=== PATIENT | male | born 1960 | race Caucasian/White ===

== ENCOUNTER 2017-06-17 15:33 | Inpatient (IN) | payer MEDICAID, OTHER ==
[~2017-06-17] VITALS: Ht 167.6 cm; Wt 69.0 kg
--- NOTE | 2017-06-17 16:12 | ERD ---
ER Documentation Chief Complaint Date/Time DATE: 06/17/17 TIME: 15:58 Chief Complaint RIGHT FIRST TOE PAIN/SWELLING HPI This 57-year-old male patient presents to emergency department for a right great toe injury. Patient reports he was cutting his toe with tweezers and slipped he has a skin avulsion distally from skin fold and matrix of great toenail. Patient's toe is edematous with erythema, denies acute pain reports 3/ 10 on pain scale. Denies nausea vomiting fever or chills. Patient denies past medical history of diabetes, reports frequent ingrown toenails which he exercises himself. ROS All systems reviewed and are negative except as per history of present illness. Medications Home Meds No Active Prescriptions or Reported Meds Allergies Allergies: Coded Allergies: No Known Drug Allergies (Verified Allergy, Unknown, 06/17/17) Physical Exam Vitals Vital Signs Date Time Temp Pulse Resp B/P Pulse Ox O2 Delivery O2 Flow Rate FiO2 06/17/17 20:35 98.2 83 18 136/78 97 Room Air 06/17/17 15:35 98.2 99 18 159/81 97 Physical Exam Const: Well-nourished, well-hydrated, no acute distress Head: Atraumatic Eyes: Normal Conjunctiva PERRLA, EOMI ENT: Normal External Ears, Nose and Mouth mucous membranes. Neck: Full range of motion..~ No meningismus. Resp: Respirations even and unlabored, no respiratory distress Cardio: Abd: Skin: Right great toe presents with a open oozing 0.7 cm x 0.3 cm wound involving nailbed matrix and skin fold Back: Ext: Neur: Awake and alert Psych: Normal Mood and Affect Result Diagram: 06/17/17191906/17/171919 Results 24 hrs Laboratory Tests Test 06/17/17 19:20 White Blood Count 8.310^3/ul Red Blood Count 5.1110^6/ul Hemoglobin 16.0g/dl Hematocrit 46.0% Mean Corpuscular Volume 90.0fl Mean Corpuscular Hemoglobin 31.3pg Mean Corpuscular Hemoglobin Concent 34.8g/dl Red Cell Distribution Width 12.3% Platelet Count 05815^3/UL Mean Platelet Volume 10.5fl Neutrophils % 55.1% Lymphocytes % 33.9% Monocytes % 8.1% Eosinophils % 2.0% Basophils % 0.5% Nucleated Red Blood Cells % 0.0/100WBC Neutrophils # 4.610^3/ul Lymphocytes # 2.810^3/ul Monocytes # 0.710^3/ul Eosinophils # 0.210^3/ul Basophils # 0.010^3/ul Nucleated Red Blood Cells # 0.010^3/ul Sodium Level 144mmol/L Potassium Level 4.2mmol/L Chloride Level 99mmol/L Carbon Dioxide Level 29mmol/L Anion Gap 20 Blood Urea Nitrogen 13mg/dl Creatinine 0.75mg/dl Glucose Level 259mg/dl Lactic Acid Level 2.1mmol/L Calcium Level 9.8mg/dl Total Bilirubin 0.4mg/dl Direct Bilirubin 0.00mg/dl Indirect Bilirubin 0.4mg/dl Aspartate Amino Transf (AST/SGOT) 20IU/L Alanine Aminotransferase (ALT/SGPT) 32IU/L Alkaline Phosphatase 98IU/L Total Protein 7.8g/dl Albumin 4.6g/dl Globulin 3.20g/dl Albumin/Globulin Ratio 1.43 Current Medications Medications (Trade) Dose Ordered Sig/Debra Route PRN Reason Start Time Stop Time Status Last Admin Dose Admin Acetaminophen (Tylenol Tab) 650 mg ONCE ONCE PO 06/17/17 16:30 06/17/17 16:31 DC 06/17/17 16:18 Cephalexin (Keflex) 500 mg ONCE ONCE PO 06/17/17 16:30 06/17/17 16:31 DC 06/17/17 16:18 Trimethoprim/ Sulfamethoxazole (Bactrim (Ds)) 1 tab ONCE ONCE PO 06/17/17 16:30 06/17/17 16:31 DC 06/17/17 16:19 Mupirocin 1 applic 1 applic ONCE ONCE TOP 06/17/17 16:30 06/17/17 16:31 DC Vancomycin HCl 1 gm/Sodium Chloride 250 ml @ 125 mls/hr ONCE ONCE IVPB 06/17/17 19:30 06/17/17 21:29 DC 06/17/17 20:10 Cefepime HCl 50 ml @ 100 mls/hr ONCE ONCE IVPB 06/17/17 19:30 06/17/17 19:59 DC 06/17/17 19:33 Sodium Chloride (NS) 1,000 ml @ 1,000 mls/hr Q1H ONCE IV 06/17/17 19:30 06/17/17 20:29 DC 06/17/17 19:33 Ondansetron HCl (Zofran Inj) 4 mg BRIDGE ORDER PRN IV NAUSEA AND/OR VOMITING 06/17/17 20:30 06/18/17 20:29 Acetaminophen (Tylenol Tab) 650 mg ER BRIDGE PRN PO MILD PAIN/FEVER 06/17/17 20:30 06/18/17 20:29 IV Flush (NS 3 ml) 3 ml PER PROTOCOL IV 06/17/17 23:00 Ondansetron HCl (Zofran Inj) 4 mg Q6H PRN IV NAUSEA AND/OR VOMITING 06/17/17 23:00 Acetaminophen (Tylenol Tab) 650 mg Q6H PRN PO PAIN LEVEL 1-3 OR FEVER 06/17/17 23:00 Morphine Sulfate (morphine) 2 mg Q4H PRN IV SEVERE PAIN LEVEL 7-10 06/17/17 23:00 Docusate Sodium (Colace) 100 mg Q12H PRN PO CONSTIPATION 06/17/17 23:00 Bisacodyl (Dulcolax) 5 mg DAILY PRN PO CONSTIPATION 06/17/17 23:00 Famotidine (Pepcid) 20 mg Q12 PO 06/17/17 23:00 06/17/17 23:51 Interpretation text CBC shows no evidence of hemorrhage or infection Chemistry shows no evidence of significant electrolyte abnormalities or renal insufficiency Lactic acid is 2.1. Procedures/MDM PROCEDURE: XR Toe. CLINICAL INDICATION: Osteomyelitis right first toe. TECHNIQUE: Three views of the right first toe. COMPARISON: None available. FINDINGS: There is soft tissue edema overlying the distal phalanx of the great toe with irregularity of the skin likely due to ulceration. There is mild periosteal reaction involving the tuft of the distal phalanx of the great toe concerning for osteomyelitis. Negative for bony destruction. The interphalangeal joint is anatomically aligned and appears normal. Negative for radiopaque foreign body. No abnormality is identified in the remainder of the foot. IMPRESSION: Periosteal reaction involving the tuft of the distal phalanx of the great toe concerning for osteomyelitis without bony destruction. There is edema in the surrounding soft tissues without clear evidence of abnormal soft tissue gas. Electronically viewed and signed by Renetta Peralta Physician on 06/17/2017 18: 27 This 57-year-old male patient presents to emergency department for evaluation of a right great toe injury. Wound was self-inflicted when trimming his own nail patient inadvertently cut into his nail matrix and skin folds. Patient has a 0.7 cm x 0.3 cm purulent oozing wet open wound. Wound is suspicious for an osteomyelitis patient treated with wound care, Bactroban, oral Keflex and Bactrim. Wound is suspicious for osteomyelitis a x-ray will be obtained with results as stated above distal phalanx of great toe concerning for osteomyelitis without bony destruction. There is edema around surrounding soft tissue without clear evidence of abnormal soft tissue gas. This case discussed with supervising physician Dr. Hernandez . 1 L of normal saline, 1 g of vancomycin , and 2 g of cefepime ordered. Lactic acid is 2.1 with normal WBCs and no bandemia. Patient is afebrile with a normal sinus rhythm. Plan to admit patient to hospitalist group. All care turned over to Dr. Hernandez at this time Departure Diagnosis: Primary Impression: Osteomyelitis of ankle or foot, right, acute Condition: Stable CORIN,SURENDRA Jun 17, 2017 16:08
[2017-06-17] MEDS ORDERED: TRIMETHOPRIM/SULFAMETHOX (DS) TAB PO ONE (16:30)
[2017-06-17] MEDS ORDERED: CEPHALEXIN 500 MG CAP PO ONE (16:30)
[2017-06-17] MEDS ORDERED: MUPIROCIN 2% 22 GM OINT TOP ONE (16:30)
[2017-06-17] MEDS ORDERED: ACETAMINOPHEN 325 MG TAB PO ONE (16:30)
--- NOTE | 2017-06-17 18:28 | RADRPT ---
PROCEDURE: XR Toe. CLINICAL INDICATION: Osteomyelitis right first toe. TECHNIQUE: Three views of the right first toe. COMPARISON: None available. FINDINGS: There is soft tissue edema overlying the distal phalanx of the great toe with irregularity of the sk in likely due to ulceration. There is mild periosteal reaction involving the tuft of the distal pha lanx of the great toe concerning for osteomyelitis. Negative for bony destruction. The interphalan geal joint is anatomically aligned and appears normal. Negative for radiopaque foreign body. No ab normality is identified in the remainder of the foot. IMPRESSION: Periosteal reaction involving the tuft of the distal phalanx of the great toe concerning for osteomy elitis without bony destruction. There is edema in the surrounding soft tissues without clear evide nce of abnormal soft tissue gas. RPTAT: HCTS Physician Sharlene Date Time Electronically viewed and signed by Physician Sharlene on 06/17/2017 18:27 /
[2017-06-17] MEDS ORDERED: VANCOMYCIN 1 GM in SOD CHLORIDE 0.9% 250 ML IVPB ONE (19:30)
[2017-06-17] MEDS ORDERED: SOD CHLORIDE 0.9% 1,000 ML IV ONE (19:30)
[2017-06-17] MEDS ORDERED: CEFEPIME 2GM/50 ML (PMX) 50 ML IVPB ONE (19:30)
[2017-06-17 19:43] LABS: BASOPHILS % 0.5 % (0.0-2.0); EOSINOPHILS # 0.2 10^3/ul (0.0-0.5); LYMPHOCYTES # 2.8 10^3/ul (0.8-2.9); LYMPHOCYTES % 33.9 % (15.0-51.0); MEAN CORPUSCULAR HEMOGLOBIN 31.3 pg (29.0-33.0); MEAN CORPUSCULAR HGB CONC 34.8 g/dl (32.0-37.0); MEAN PLATELET VOLUME 10.5 fl (7.4-10.4); MONOCYTE # 0.7 10^3/ul (0.3-0.9); MONOCYTES % 8.1 % (0.0-11.0); NEUTROPHIL # 4.6 10^3/ul (1.6-7.5); NEUTROPHILS % 55.1 % (39.0-77.0); PLATELET COUNT 275 10^3/UL (140-415); RED BLOOD COUNT 5.11 10^6/ul (4.70-6.10); RED CELL DISTRIBUTION WIDTH 12.3 % (11.5-14.5); WHITE BLOOD COUNT 8.3 10^3/ul (4.8-10.8)
[2017-06-17 20:30] LABS: ALBUMIN 4.6 g/dl (3.3-4.9); ALBUMIN/GLOBULIN RATIO 1.43; BILIRUBIN,INDIRECT 0.4 mg/dl (0-1.1); BILIRUBIN,TOTAL 0.4 mg/dl (0.2-1.3); CALCIUM 9.8 mg/dl (8.4-10.2); CREATININE 0.75 mg/dl (0.61-1.24); POTASSIUM 4.2 mmol/L (3.5-5.1); TOTAL PROTEIN 7.8 g/dl (6.1-8.1)
[2017-06-17] MEDS ORDERED: ONDANSETRON 4 MG INJ IV PRN ×2 (20:30→23:00)
[2017-06-17] MEDS ORDERED: ACETAMINOPHEN 325 MG TAB PO PRN ×2 (20:30→23:00)
[2017-06-17 20:35] VITALS: TEMP 98.2
[2017-06-17] MEDS ORDERED: BISACODYL (EC) 5 MG TAB PO PRN (23:00)
[2017-06-17] MEDS ORDERED: morphine 2 MG INJ IV PRN (23:00)
[2017-06-17] MEDS ORDERED: DOCUSATE SODIUM 100 MG CAP PO PRN (23:00)
[2017-06-17] MEDS ORDERED: NACL 0.9% 3 ML SYG IV SCH (23:00)
--- NOTE | 2017-06-17 23:13 | HP ---
Date/Time of Note Date/Time of Note DATE: 06/17/17 TIME: 23:12 Assessment/Plan VTE Prophylaxis VTE Prophylaxis Intervention: SCD's Assessment/Plan Chief Complaint/Hosp Course This is a 57-year-old male being admitted to the [facility] floor for: #1 right great toe osteomyelitis: Patient has a history of treating his own ingrown toenails. X-ray shows signs of osteomyelitis. At the current time will start the patient on IV vancomycin and Levaquin. Will obtain an MRI of the foot. Will obtain podiatry consult and ID consult. Will also obtain lower extremity arterial Doppler to assess blood flow. #2 elevated blood sugars: Patient denies any history of diabetes. At the current time we will continue monitor blood sugars. Will obtain a hemoglobin A1c. #3 DVT and GI prophylaxis: SCDs, acid jae Further treatment strategy will be implemented as per the clinical course Problems: HPI/ROS Admit Date/Time Admit Date/Time Hx of Present Illness cc: right great toe injury This 57-year-old male patient presents to emergency department for a right great toe injury. Patient reports he was cutting his toe with tweezers and slipped he has a skin avulsion distally from skin fold and matrix of great toenail. Patient's toe is edematous with erythema, denies acute pain reports 3/ 10 on pain scale. Denies nausea vomiting fever or chills. Patient denies past medical history of diabetes, reports frequent ingrown toenails which he removes himself. allergies: nkda meds: none ROS Const: Negative for fever, chills, weight gain or weight loss, fatigue, or diaphoresis Eyes : No pain discharge or redness or change in visual acuity ENT: No pain, sore throat, congestion, congestion, dysphagia or discharge Respiratory: No shortness of breath, cough, sputum, wheezing, or pleuritic pain Cardiovascular: No chest pain, palpitation, PND, or edema GI : no change in appetite, abdominal pain, nausea, vomiting, diarrhea, constipation, or change in the color his stool Genitourinary: No dysuria, hematuria, flank pain , discharge or CVA tenderness Musculoskeletal: As per HPI Skin: As per HPI Neuro: No headache, dizziness, syncope, seizure, focal weakness Endocrine: No polyuria, polydipsia, temperature intolerance Psych: No hallucination, depression, anxiety or suicidal ideation PMH/Family/Social Past Medical History Medical History: no pertinent history Past Surgical History Past Surgical Hx: no surgical history Family History Significant Family History: diabetes, hypertension Social History Alcohol Use: none Smoking Status: Never smoker Drug Use: none Exam/Review of Systems Vital Signs Vitals Vital Signs Date Time Temp Pulse Resp B/P Pulse Ox O2 Delivery O2 Flow Rate FiO2 06/17/17 20:35 98.2 83 18 136/78 97 Room Air Exam Exam General: Patient is well-developed well-nourished The patient is alert oriented -3 lying comfortably in bed. HEENT: Atraumatic, normocephalic. The pupils are equal, round and reactive. Extraocular motor are intact Neck: Supple with full range of motion. No rigidity or meningismus Chest: Nontender Lungs: Clear to auscultation bilaterally no crackles rales or wheezing Heart: Normal S1-S2, Regular rhythm and rate. No murmur, S3, or S4 Abdomen: Soft , nontender, nondistended , bowel sounds are present. No guarding no rebound tenderness , No masses or organomegaly. No costovertebral temporal angle mass Extremities: As per ED documentation as the toe was wrapped securely on my examination: Right great toe presents with a open oozing 0.7 cm x 0.3 cm wound involving nailbed matrix and skin fold Neurologic: Normal mental status, speech normal, cranial nerves II through XII are intact, motor and sensory are intact, no focal weakness Additional Comments PROCEDURE: XR Toe. CLINICAL INDICATION: Osteomyelitis right first toe. TECHNIQUE: Three views of the right first toe. COMPARISON: None available. FINDINGS: There is soft tissue edema overlying the distal phalanx of the great toe with irregularity of the skin likely due to ulceration. There is mild periosteal reaction involving the tuft of the distal phalanx of the great toe concerning for osteomyelitis. Negative for bony destruction. The interphalangeal joint is anatomically aligned and appears normal. Negative for radiopaque foreign body. No abnormality is identified in the remainder of the foot. IMPRESSION: Periosteal reaction involving the tuft of the distal phalanx of the great toe concerning for osteomyelitis without bony destruction. There is edema in the surrounding soft tissues without clear evidence of abnormal soft tissue gas. RPTAT: HCTS Renetta Peralta Physician Date Time Electronically viewed and signed by Renetta Peralta Physician on 06/17/2017 18: 27 CS/ Labs Result Diagram: 06/17/17191906/17/171919 Medications Medications Current Medications Ondansetron HCl (Zofran Inj) 4 mg Q6H PRN IV NAUSEA AND/OR VOMITING; Start 08/24 at 23:00 Acetaminophen (Tylenol Tab) 650 mg Q6H PRN PO PAIN LEVEL 1-3 OR FEVER; Start at 23:00 Morphine Sulfate (morphine) 2 mg Q4H PRN IV SEVERE PAIN LEVEL 7-10; Start 06/17 at 23:00 Docusate Sodium (Colace) 100 mg Q12H PRN PO CONSTIPATION; Start 06/17/17 at 23: 00 Bisacodyl (Dulcolax) 5 mg DAILY PRN PO CONSTIPATION; Start 06/17/17 at 23:00 Famotidine (Pepcid) 20 mg Q12 PO ; Start 06/17/17 at 23:00 GEMA GAYLE Jun 17, 2017 23:13
[2017-06-17] MEDS: FAMOTIDINE 20 MG TAB PO SCH (23:51)
[2017-06-18] MEDS ORDERED: LEVOFLOXACIN 750MG/D5W (PMX) 150 ML IVPB SCH (03:00)
[2017-06-18] MEDS ORDERED: VANCOMYCIN IV PER PHARMACY XX SCH (03:00)
[2017-06-18] MEDS ORDERED: VANCOMYCIN 1 GM in NS 250 ML IVPB SCH (05:00)
[2017-06-18 06:26] VITALS: BP 148/73; PULSE 85; RESP 16
[2017-06-18 06:38] LABS: BASOPHILS % 0.5 % (0.0-2.0); EOSINOPHILS # 0.2 10^3/ul (0.0-0.5); EOSINOPHILS % 2.6 % (0.0-7.0); HEMATOCRIT 43.5 % (42.0-52.0); HEMOGLOBIN 14.7 g/dl (14.0-18.0); LYMPHOCYTES # 2.3 10^3/ul (0.8-2.9); MEAN CORPUSCULAR HEMOGLOBIN 30.4 pg (29.0-33.0); MEAN CORPUSCULAR HGB CONC 33.8 g/dl (32.0-37.0); MEAN CORPUSCULAR VOLUME 90.1 fl (82.0-101.0); MEAN PLATELET VOLUME 10.7 fl (7.4-10.4); MONOCYTE # 0.6 10^3/ul (0.3-0.9); MONOCYTES % 8.2 % (0.0-11.0); NEUTROPHIL # 4.5 10^3/ul (1.6-7.5); NEUTROPHILS % 58.3 % (39.0-77.0); PLATELET COUNT 241 10^3/UL (140-415); RED BLOOD COUNT 4.83 10^6/ul (4.70-6.10); RED CELL DISTRIBUTION WIDTH 12.4 % (11.5-14.5); WHITE BLOOD COUNT 7.7 10^3/ul (4.8-10.8)
[2017-06-18 07:16] LABS: ALBUMIN 3.6 g/dl (3.3-4.9); ALBUMIN/GLOBULIN RATIO 1.12; BILIRUBIN,INDIRECT 0.6 mg/dl (0-1.1); BILIRUBIN,TOTAL 0.6 mg/dl (0.2-1.3); CALCIUM 8.5 mg/dl (8.4-10.2); CREATININE 0.71 mg/dl (0.61-1.24); MAGNESIUM 1.7 mg/dl (1.7-2.5); POTASSIUM 3.8 mmol/L (3.5-5.1); TOTAL PROTEIN 6.8 g/dl (6.1-8.1)
[2017-06-18 07:41] LABS: THYROID STIMULATING HORMONE 2.57 MIU/L (0.465-4.680)
[2017-06-18] MEDS ORDERED: SILVER SULFADIAZINE 1% 50 GM CR TOP SCH (09:00)
[2017-06-18] MEDS: FAMOTIDINE 20 MG TAB PO SCH (09:00)
[2017-06-18] MEDS: SODIUM HYPOCHLORITE 0.125% 473 ML BTL IRR SCH ×2 (09:00→21:00)
[2017-06-18 09:56] VITALS: Ht 167.6 cm; Wt 69.0 kg
[2017-06-18] MEDS: SILVER SULFADIAZINE 1% 25 GM CR TOP SCH ×2 (10:14→21:00)
[2017-06-18 13:45] VITALS: BP 149/83; RESP 16
--- NOTE | 2017-06-18 15:04 | RADRPT ---
PROCEDURE: US bilateral lower extremity arteries. CLINICAL INDICATION: Bilateral leg pain. Claudication that interferes significantly with the jaquelin ent's lifestyle. Right toe nonhealing ulcer. TECHNIQUE: Multiple longitudinal and transverse images of the bilateral lower extremity arteries w ere obtained with zuniga scale, pulsed Doppler, and color Doppler imaging. COMPARISON: No prior studies are available for comparison. FINDINGS: Right SUPERINTENDENT TERMINAL:119 cm/sec PSFA:104 cm/sec MSFA:106 cm/sec DSFA:78 cm/sec POP:74 cm/sec VETERINARY MEAT INSPECTOR:64 cm/sec DPA:37 cm/sec Left SUPERINTENDENT TERMINAL:108 cm/sec PSFA:82 cm/sec MSFA:86 cm/sec DSFA:64 cm/sec POP:53 cm/sec VETERINARY MEAT INSPECTOR:60 cm/sec DPA:14 cm/sec The right ankle-brachial index is 1.3 and the left ankle-brachial index is 1.3. There is normal triphasic flow throughout bilaterally. There is no significant plaque, stenosis, or occlusion. IMPRESSION: 1. Normal bilateral lower extremity arterial Doppler. RPTAT: QQ .Kyle Foote MD, MD Date Time Electronically viewed and signed by .Kyle Foote MD, on 06/18/2017 15:04 .R/
--- NOTE | 2017-06-18 17:11 | PN ---
Date/Time of Note Date/Time of Note DATE: 06/18/17 TIME: 17:09 Assessment/Plan VTE Prophylaxis VTE Prophylaxis Intervention: SCD's Assessment/Plan Assessment/Plan 57 yo M with DM admitted for foot wound in the setting of diabetes. #foot wound: does not appear clinically infected. No evidence of cellulitis ( toe not warm or red or swollen). defer additional abx at this time -MRI pending to eval for occult OM -arterial studies nl -podiatry on consult -wound care on cs #poorly controlled DM2: start basal/bolus insulin dispo pending podiatry eval Subjective 24 Hr Interval Summary Free Text/Dictation Pt states foot wound was present for 1 week. and pt state he hadnt' been to the doctor in a long time and wasn't checking his blood sugars at home. In fact, he didnt know that he had diabetes Exam/Review of Systems Vital Signs Vitals Vital Signs Date Time Temp Pulse Resp B/P Pulse Ox O2 Delivery O2 Flow Rate FiO2 06/18/17 13:45 98.1 80 16 149/83 98 06/18/17 06:26 Room Air Exam nad, sitting up in bed no mrg lungs clear abd soft L foot with strong DP pulse, great toe without sig swelling, +2x0.5 cm gash at exterior aspect of nail. Unclear how deep wound goes. No active drainage MRI foot pending arterial studies nl a1c 10s Results Result Diagram: 06/18/17 0605 06/18/17 0605 Results 24 hrs Laboratory Tests Test 06/17/17 19:20 06/18/17 06:05 White Blood Count 8.3 7.7 Red Blood Count 5.11 4.83 Hemoglobin 16.0 14.7 Hematocrit 46.0 43.5 Mean Corpuscular Volume 90.0 90.1 Mean Corpuscular Hemoglobin 31.3 30.4 Mean Corpuscular Hemoglobin Concent 34.8 33.8 Red Cell Distribution Width 12.3 12.4 Platelet Count 275 241 Mean Platelet Volume 10.5 H 10.7 H Neutrophils % 55.1 58.3 Lymphocytes % 33.9 30.0 Monocytes % 8.1 8.2 Eosinophils % 2.0 2.6 Basophils % 0.5 0.5 Nucleated Red Blood Cells % 0.0 0.0 Neutrophils # 4.6 4.5 Lymphocytes # 2.8 2.3 Monocytes # 0.7 0.6 Eosinophils # 0.2 0.2 Basophils # 0.0 0.0 Nucleated Red Blood Cells # 0.0 0.0 Sodium Level 144 141 Potassium Level 4.2 3.8 Chloride Level 99 100 Carbon Dioxide Level 29 29 Anion Gap 20 H 16 Blood Urea Nitrogen 13 10 Creatinine 0.75 0.71 Glucose Level 259 H 186 Lactic Acid Level 2.1 H Calcium Level 9.8 8.5 Total Bilirubin 0.4 0.6 Direct Bilirubin 0.00 0.00 Indirect Bilirubin 0.4 0.6 Aspartate Amino Transf (AST/SGOT) 20 18 Alanine Aminotransferase (ALT/SGPT) 32 28 Alkaline Phosphatase 98 81 Total Protein 7.8 6.8 # Albumin 4.6 3.6 # Globulin 3.20 3.20 Albumin/Globulin Ratio 1.43 1.12 Hemoglobin A1c 10.4 H Magnesium Level 1.7 Triglycerides Level 149 Cholesterol Level 181 LDL Cholesterol, Calculated 115 HDL Cholesterol 36 Cholesterol/HDL Ratio 5.0 Thyroid Stimulating Hormone (TSH) 2.570 Medications Medications Current Medications Ondansetron HCl (Zofran Inj) 4 mg Q6H PRN IV NAUSEA AND/OR VOMITING; Start 08/24 at 23:00 Acetaminophen (Tylenol Tab) 650 mg Q6H PRN PO PAIN LEVEL 1-3 OR FEVER; Start at 23:00 Morphine Sulfate (morphine) 2 mg Q4H PRN IV SEVERE PAIN LEVEL 7-10; Start 06/17 at 23:00 Docusate Sodium (Colace) 100 mg Q12H PRN PO CONSTIPATION; Start 06/17/17 at 23: 00 Bisacodyl (Dulcolax) 5 mg DAILY PRN PO CONSTIPATION; Start 06/17/17 at 23:00 Famotidine 20 mg 20 mg Q12 PO Last administered on 06/18/17 09:00; Admin Dose 20 MG; Start 06/17/17 at 23:00 Levofloxacin/ Dextrose 150 ml @ 100 mls/hr Q24H IVPB Last administered on 06/18 03:07; Admin Dose 100 MLS/HR; Start 06/18/17 at 03:00 Vancomycin HCl (Vancocin) 250 ml @ 125 mls/hr Q12H IVPB Last administered on 04:24; Admin Dose 125 MLS/HR; Start 06/18/17 at 05:00 Sodium Hypochlorite (Dakin'S (1/4 Strength)) 1 applic BID IRR Last administered on 06/18/17 09:00; Admin Dose 1 APPLIC; Start 06/18/17 at 09:00 Silver Sulfadiazine (Thermazene 1% 25 Gm) 1 applic BID TOP Last administered on 06/18/17 10:14; Admin Dose 1 APPLIC; Start 06/18/17 at 09:00 Miscellaneous Information (*Rx Drug Level Order Reminder*) VANCOMYCIN TROUGH AT 0400 ONCE ONCE XX ; Start 06/19/17 at 04:00; Stop 06/19/17 at 04:01 MARCI JACOB MD Jun 18, 2017 17:11
[2017-06-18] MEDS ORDERED: LIDOCAINE 1% (MDV) 20 ML INJ INJ PRN (18:00)
[2017-06-18] MEDS: INSULIN ASPART [NOVOLOG] 3 ML PEN SC SCH ×3 (18:56→22:07)
[2017-06-18 19:43] VITALS: BP 136/80; RESP 16
[2017-06-19] MEDS: ACCU-CHEK XX SCH ×2 (02:00)
[2017-06-19 04:00] VITALS: BP 143/89; RESP 16
--- NOTE | 2017-06-19 04:25 | CONS ---
DATE OF ADMISSION: 06/17/2017 DATE OF CONSULTATION: 06/18/2017 CHIEF COMPLAINT: Right great toe infection. HISTORY OF PRESENT ILLNESS: This is a 57-year-old gentleman who was admitted for cellulitis of the right great toe. Radiographs reveal erosion suspicious for osteomyelitis. The patient has MRI pending. The patient relates unknown diagnosis of diabetes. He does relate self injury from cutting the nail on a frequent basis. The patient does not have primary care following him as an outpatient. PAST MEDICAL HISTORY: None. ALLERGIES: NO KNOWN DRUG ALLERGIES. MEDICATIONS: Reviewed. REVIEW OF SYSTEMS: Right great toe, mild pain. PHYSICAL EXAMINATION: VITAL SIGNS: Temperature 98.1, pulse 80, respiratory rate 18, blood pressure 149/83, pulse ox 98. GENERAL: The patient is alert and oriented, in no acute distress. Regular respiration. EXTREMITIES: Two plus DP/PT pulse. There is ulceration with purulent drainage of medial border of the right great toe. Mild tenderness with palpation. Edema present. There is ingrowing nail. The patient is with new pain at the IPJ or MPJ of the great toe. No osseus instability noted. Mild odor. LABS: WBC 7.7, hemoglobin 14.7, hematocrit 43.5, platelets 241, sodium 141, potassium 3.8, chloride 100, CO2 29, BUN 10, creatinine 0.71. Glucose is 186. RADIOGRAPHS: Periosteal reaction involving leigh of distal phalanx, concerning for osteomyelitis without bony destruction. Extremity arterial Doppler is normal, bilateral arterial Doppler. ASSESSMENT: 1. Cellulitis. 2. Differential diagnosis osteomyelitis, distal phalanx, right great toe. 3. Ingrowing nail. 4. Pain, right great toe. 5. Edema. PLAN: The patient is seen and evaluated. MRI had been ordered and pending. Consent obtained for incision and drainage, avulsion of nail, and debridement of the toes, cleaned with Dakin's solution and Betadine, using 1% lidocaine plain, total of 4 mL, toe was injected, and the nail was transected, excised, partial nail avulsion performed. The ulceration descended to the proximal nail fold and tunneled approximately 0.5 cm. There is serosanguinous exudate. The wound was debrided excisionally, using sharp instrumentation, measured approximately 1 x 0.5 cm. Wound was irrigated with saline and applied Xeroform, Silvadene, and dry sterile dressing. The patient tolerated the procedure well. The patient has MRI, and if bone marrow edema present, may require long-term antibiotics. The patient is currently on Dakin's irrigation, Silvadene, Vancomycin, and Levaquin. Dictated By: Peter Tapia DPM /humberto/andres /Document#: [id number]
[2017-06-19 08:04] VITALS: BP 151/88; RESP 20
[2017-06-19] MEDS: INSULIN GLARGINE [LANtus] 3 ML PEN SC SCH (08:16)
[2017-06-19] MEDS: INSULIN ASPART [NOVOLOG] 3 ML PEN SC SCH ×7 (08:16→20:48)
[2017-06-19] MEDS: SODIUM HYPOCHLORITE 0.125% 473 ML BTL IRR SCH ×2 (08:17→20:42)
[2017-06-19] MEDS: SILVER SULFADIAZINE 1% 25 GM CR TOP SCH ×2 (08:17→20:41)
[2017-06-19 17:33] VITALS: BP 134/79; RESP 18
[2017-06-19 17:36] VITALS: BP 141/83; RESP 74
--- NOTE | 2017-06-19 18:24 | PN ---
Date/Time of Note Date/Time of Note DATE: 06/19/17 TIME: 18:23 Assessment/Plan VTE Prophylaxis VTE Prophylaxis Intervention: SCD's Lines/Catheters IV Catheter Type (from Nrsg): Saline Lock Assessment/Plan Assessment/Plan 57 yo M with DM admitted for foot wound in the setting of diabetes. #foot wound: does not appear clinically infected. No evidence of cellulitis ( toe not warm or red or swollen). defer additional abx at this time -MRI pending to eval for occult OM -arterial studies nl -podiatry on consult -wound care on cs #poorly controlled DM2: cont basal/bolus insulin dispo pending MRI results, will then talk to podiatry Subjective 24 Hr Interval Summary Free Text/Dictation Pt sleeping at time of my eval this afternoon Exam/Review of Systems Vital Signs Vitals Vital Signs Date Time Temp Pulse Resp B/P Pulse Ox O2 Delivery O2 Flow Rate FiO2 06/19/17 17:36 98.5 74 74 141/83 95 06/18/17 06:26 Room Air Intake and Output 06/18/17 06/18/17 06/19/17 15:00 23:00 07:00 Intake Total 540 ml 250 ml Balance 540 ml 250 ml Exam nad, laying in bed resp nonlabored no gross abd distension no rashes no edema MRI still pending BGs better Results Result Diagram: 06/18/17 0605 06/18/17 0605 Results 24 hrs Laboratory Tests Test 06/18/17 18:44 06/18/17 21:49 06/19/17 02:03 06/19/17 04:00 Bedside Glucose 243 H 191 157 Vancomycin Level Trough 7.0 L Test 06/19/17 07:53 06/19/17 12:06 06/19/17 17:33 Bedside Glucose 160 155 204 Medications Medications Current Medications Ondansetron HCl (Zofran Inj) 4 mg Q6H PRN IV NAUSEA AND/OR VOMITING; Start 08/24 at 23:00 Acetaminophen (Tylenol Tab) 650 mg Q6H PRN PO PAIN LEVEL 1-3 OR FEVER; Start at 23:00 Morphine Sulfate (morphine) 2 mg Q4H PRN IV SEVERE PAIN LEVEL 7-10; Start 06/17 at 23:00 Docusate Sodium (Colace) 100 mg Q12H PRN PO CONSTIPATION; Start 06/17/17 at 23: 00 Bisacodyl (Dulcolax) 5 mg DAILY PRN PO CONSTIPATION; Start 06/17/17 at 23:00 Sodium Hypochlorite (Dakin'S (1/4 Strength)) 1 applic BID IRR Last administered on 06/19/17 08:17; Admin Dose 1 APPLIC; Start 06/18/17 at 09:00 Silver Sulfadiazine (Thermazene 1% 25 Gm) 1 applic BID TOP Last administered on 06/19/17 08:17; Admin Dose 1 APPLIC; Start 06/18/17 at 09:00 Diagnostic Test (Pha) (Accu-Chek) 1 ea 02 XX ; Start 06/19/17 at 02:00 Insulin Glargine (Lantus) 14 unit DAILY@08 SC Last administered on 06/19/17 08 :16; Admin Dose 14 UNIT; Start 06/19/17 at 08:00 Diagnostic Test (Pha) (Accu-Chek) 1 ea 02 XX ; Start 06/19/17 at 02:00 MARCI JACOB MD Jun 19, 2017 18:24
[2017-06-19 20:00] VITALS: BP 129/79; PULSE 74; RESP 18
[2017-06-20] MEDS: ACCU-CHEK XX SCH ×2 (02:47)
[2017-06-20 07:37] VITALS: BP 137/88; RESP 18
[2017-06-20] MEDS: INSULIN GLARGINE [LANtus] 3 ML PEN SC SCH (08:23)
[2017-06-20] MEDS: INSULIN ASPART [NOVOLOG] 3 ML PEN SC SCH ×7 (08:25→20:37)
[2017-06-20] MEDS: SILVER SULFADIAZINE 1% 25 GM CR TOP SCH ×2 (08:26→20:34)
[2017-06-20] MEDS: SODIUM HYPOCHLORITE 0.125% 473 ML BTL IRR SCH ×2 (08:26→20:34)
--- NOTE | 2017-06-20 09:50 | RADRPT ---
PROCEDURE: MRI OF THE RIGHT FOOT. CLINICAL INDICATION: Ulceration right hallux. Clinical concern is for osteomyelitis. TECHNIQUE: Multiple MR pulse sequences in multiple planes were obtained. Images were interpreted on the high-resolution PACS system. COMPARISON: Correlation with radiographs from 06/17/2017. FINDINGS: There is a shallow skin and subcutaneous ulceration of the dorsum of the first distal phalanx correl ate with the patient's ulcer seen on the coronal sequence image 30. No drainable fluid collection i s suspected. The remaining subcutaneous soft tissues are within normal limits. Visualized muscles a nd tendons are intact. There is mild nonspecific fibrosis at the second intermetatarsal webspace. Faint bone marrow edema seen at the first distal phalanx, which may be reactive in nature to the ove rlying wound at this time. No evidence for osteomyelitis. IMPRESSION: 1. Dorsal skin and subcutaneous ulceration of the first distal phalanx. No evidence for a drainabl e fluid collection. 2. Mild reactive edema at the first distal phalanx without evidence of osteomyelitis at this time. Consider follow-up imaging in 5-7 days if clinical suspicion persists. RPTAT: [facility] .Marvin Aguirre MD, Date Time Electronically viewed and signed by .Marvin Aguirre MD, on 06/20/2017 09:49 .d/
--- NOTE | 2017-06-20 14:51 | PN ---
Date/Time of Note Date/Time of Note DATE: 06/20/17 TIME: 14:48 Assessment/Plan VTE Prophylaxis VTE Prophylaxis Intervention: SCD's Lines/Catheters IV Catheter Type (from Nrsg): Saline Lock Assessment/Plan Assessment/Plan 57 yo M with DM admitted for foot wound in the setting of diabetes. now sp great toenail removal by podiatry #foot wound: sp great nail avulsion by podiatry -MRI negative for OM; arterial studies nl -podiatry on consult -wound care on cs #poorly controlled DM2: cont basal/bolus insulin CDE eval in AM Discharge in AM. Need to ensure pt has PCP and outpatient wound care follow up for his toe. Also pt is reluctant to start on insulin, will see if CDE can persuade, otherwise would dc with metformin/SFU Subjective 24 Hr Interval Summary Free Text/Dictation Pt has been drinking 4-5 regular sodas daily. Has not seen a regular doctor for some time Exam/Review of Systems Vital Signs Vitals Vital Signs Date Time Temp Pulse Resp B/P Pulse Ox O2 Delivery O2 Flow Rate FiO2 06/20/17 07:37 97.8 81 18 137/88 98 06/19/17 20:00 Room Air Intake and Output 06/19/17 06/19/17 06/20/17 15:00 23:00 07:00 Intake Total 1360 ml 240 ml Balance 1360 ml 240 ml Results Result Diagram: 06/18/17 0605 06/18/17 0605 Results 24 hrs Laboratory Tests Test 06/19/17 17:33 06/19/17 20:40 06/20/17 02:29 06/20/17 08:07 Bedside Glucose 204 187 171 166 Test 06/20/17 12:04 Bedside Glucose 217 Medications Medications Current Medications Ondansetron HCl (Zofran Inj) 4 mg Q6H PRN IV NAUSEA AND/OR VOMITING; Start 08/24 at 23:00 Acetaminophen (Tylenol Tab) 650 mg Q6H PRN PO PAIN LEVEL 1-3 OR FEVER; Start at 23:00 Morphine Sulfate (morphine) 2 mg Q4H PRN IV SEVERE PAIN LEVEL 7-10; Start 06/17 at 23:00 Docusate Sodium (Colace) 100 mg Q12H PRN PO CONSTIPATION; Start 06/17/17 at 23: 00 Bisacodyl (Dulcolax) 5 mg DAILY PRN PO CONSTIPATION; Start 06/17/17 at 23:00 Sodium Hypochlorite (Dakin'S (1/4 Strength)) 1 applic BID IRR Last administered on 06/20/17 08:26; Admin Dose 1 APPLIC; Start 06/18/17 at 09:00 Silver Sulfadiazine (Thermazene 1% 25 Gm) 1 applic BID TOP Last administered on 06/20/17 08:26; Admin Dose 1 APPLIC; Start 06/18/17 at 09:00 Diagnostic Test (Pha) (Accu-Chek) 1 ea 02 XX Last administered on 06/20/17 02: 47; Admin Dose 1 EA; Start 06/19/17 at 02:00 Insulin Glargine (Lantus) 14 unit DAILY@08 SC Last administered on 06/20/17 08 :23; Admin Dose 14 UNIT; Start 06/19/17 at 08:00 Diagnostic Test (Pha) (Accu-Chek) 1 ea 02 XX Last administered on 06/20/17 02: 47; Admin Dose 1 EA; Start 06/19/17 at 02:00 MARCI JACOB MD Jun 20, 2017 14:51
--- NOTE | 2017-06-20 16:45 | CONS ---
DATE OF ADMISSION: 06/17/2017 DATE OF CONSULTATION: 06/18/2017 HISTORY OF PRESENT ILLNESS: Dear Doctors, the patient is a 57- year-old gentleman, who presented to [facility] secondary to 1st toe eschar that had developed after patient having an avulsion injury. The patient subsequently developed erythema, swelling, discomfort and pain. Upon his evaluation, his x-ray had shown some suggestions of osteomyelitis and has been started on antibiotic treatment. Further vascular surgery consultation was obtained for further evaluation of his lower extremity perfusion. At the moment, the patient denies shortness of breath, chest pain, nausea, vomiting, fever, chills. Denies claudication or rest pain like symptoms. REVIEW OF SYSTEMS: Fourteen point review performed, negative except what was mentioned in HPI. PAST MEDICAL HISTORY: Entails hypertension, diabetes, hypercholesterolemia, peripheral neuropathy. PAST SURGICAL HISTORY: None reported. FAMILY HISTORY: Positive for diabetes and hypertension. SOCIAL HISTORY: Denies tobacco, alcohol, or illicit drug use. PHYSICAL EXAMINATION: GENERAL: Alert and oriented times 3. CHEST: Clear to auscultation bilaterally. No crackles. HEART: S1, S2 present. No murmurs. HEENT: Normocephalic, atraumatic. PERRLA. EOMI. Mucosa moist. NECK: Supple. No carotid bruit. ABDOMEN: Soft, nontender, nondistended. Bowel sounds positive. EXTREMITIES: Right lower extremity, palpable femoral pulse. Palpable pedal pulse. Motor and sensory intact. Capillary refill 2 to 3 seconds. First great toe with an eschar that developed at the tip with an area of an ulcer with erythema that extends to the base of the toe. The left lower extremity, palpable femoral pulse. Palpable pedal pulse. Motor and sensory intact. Capillary refill 2 to 3 seconds. ASSESSMENT AND PLAN: Bilateral lower extremity atherosclerosis with right lower extremity 1st toe injury and diabetic foot infection: It seems the patient has some component of atherosclerotic disease, upon his arterial duplex, however there is no flow-limiting stenosis that is identified upon his ultrasound. At the moment, patient also has palpable pedal pulses, in which he should have adequate perfusion to heal his wound. No further vascular intervention would be needed, however, we will plan to follow the patient as an outpatient for vascular surveillance as he does have diabetes and would like for him to be optimized from a vascular surgery standpoint. Optimize vascular status (blood pressure meds, diet, nutrition, exercise, sugar control, antiplatelets). Discussed findings and plan management with the patient with family member at the bedside with a certified deck mate. Thank you for allowing us to partake in the care of your patient. Please call with any questions. Dictated By: Francisco Rodriguez MD /[email or web address]/alex /Document#: [id number]
[2017-06-20 20:00] VITALS: BP 133/83; RESP 17
[2017-06-21] MEDS: ACCU-CHEK XX SCH ×2 (01:23)
[2017-06-21 02:30] VITALS: BP 141/83; PULSE 76; RESP 20
[2017-06-21 07:39] VITALS: BP 145/86; RESP 18
[2017-06-21 07:57] VITALS: BP 99/63; RESP 18
[2017-06-21] MEDS: SODIUM HYPOCHLORITE 0.125% 473 ML BTL IRR SCH (08:07)
[2017-06-21] MEDS: SILVER SULFADIAZINE 1% 25 GM CR TOP SCH (08:07)
[2017-06-21] MEDS: INSULIN GLARGINE [LANtus] 3 ML PEN SC SCH (08:17)
[2017-06-21] MEDS: INSULIN ASPART [NOVOLOG] 3 ML PEN SC SCH ×5 (08:17→17:10)
[2017-06-21] MEDS ORDERED: LEVOFLOXACIN 500 MG TAB PO SCH (12:30)
[2017-06-21] MEDS ORDERED: GLUCAGON 1 MG INJ IM PRN (12:30)
[2017-06-21] MEDS ORDERED: GLUCOSE GEL 15 GRAM TUBE BUCCAL PRN (12:30)
[2017-06-21] MEDS ORDERED: GLUCOSE GEL 15 GRAM TUBE PO PRN ×2 (12:30)
[2017-06-21] MEDS ORDERED: DEXTROSE 50% 50 ML SYRINGE IV PRN ×2 (12:30)
--- NOTE | 2017-06-21 13:00 | PN ---
Date/Time of Note Date/Time of Note DATE: 06/21/17 TIME: 12:10 Assessment/Plan VTE Prophylaxis VTE Prophylaxis Intervention: ambulation, SCD's Assessment/Plan Assessment/Plan 57 yo male with: with DM admitted for foot wound in the setting of diabetes. now sp 1. DM foot wound, s/p great toenail removal by podiatry, Dr Tapia Appreciate recommendations from Podiatry Patient to continue wound care and also abx to be continued, Levaquin x 7 days, ID consulted for recs and d/c planning, no wound cx Follow up with Podiatry outpatient and wound care. 2. Diabetes Mellitus, new diagnosis, refusing Lantus or any subcut insulin, discharge home on Metformin and Glipizide. Patient had DM education started inpatient and given a Glucometer Prophylaxis: SCDs/ambulation, tolerating po well. Disposition: discharge home today with outpatient follow up with DM clinic and home health for wound care. Subjective 24 Hr Interval Summary Free Text/Dictation Patient doing well, appreciate recs from Podiatry and awaiting ID recs for discharge purposes No complaints this AM and wants to go home Refusing insulin so will transitioning to oral meds for newly diagnosed DM Exam/Review of Systems Vital Signs Vitals Vital Signs Date Time Temp Pulse Resp B/P Pulse Ox O2 Delivery O2 Flow Rate FiO2 06/21/17 07:57 98.1 70 18 99/63 99 06/21/17 02:30 Room Air Exam Constitutional: alert, oriented, well developed Respiratory: clear to auscultation, normal air movement Cardiovascular: nl pulses, regular rate and rhythm Gastrointestinal: non-tender, soft Musculoskeletal: nl extremities to inspection Extremities: normal pulses, other (right foot with dressing in place ) Neurological: CHIEF DIETITIAN II-XII intact, nl mental status, nl speech, nl strength Results Result Diagram: 06/18/17 0605 06/18/17 0605 Results 24 hrs Laboratory Tests Test 06/20/17 17:03 06/20/17 20:36 06/21/17 08:02 Bedside Glucose 115 162 144 Medications Medications Current Medications Ondansetron HCl (Zofran Inj) 4 mg Q6H PRN IV NAUSEA AND/OR VOMITING; Start 08/24 at 23:00 Acetaminophen (Tylenol Tab) 650 mg Q6H PRN PO PAIN LEVEL 1-3 OR FEVER; Start at 23:00 Morphine Sulfate (morphine) 2 mg Q4H PRN IV SEVERE PAIN LEVEL 7-10; Start 06/17 at 23:00 Docusate Sodium (Colace) 100 mg Q12H PRN PO CONSTIPATION; Start 06/17/17 at 23: 00 Bisacodyl (Dulcolax) 5 mg DAILY PRN PO CONSTIPATION; Start 06/17/17 at 23:00 Sodium Hypochlorite (Dakin'S (1/4 Strength)) 1 applic BID IRR Last administered on 06/21/17 08:07; Admin Dose 1 APPLIC; Start 06/18/17 at 09:00 Silver Sulfadiazine (Thermazene 1% 25 Gm) 1 applic BID TOP Last administered on 06/21/17 08:07; Admin Dose 1 APPLIC; Start 06/18/17 at 09:00 Diagnostic Test (Pha) (Accu-Chek) 1 ea 02 XX Last administered on 06/20/17 02: 47; Admin Dose 1 EA; Start 06/19/17 at 02:00 Insulin Glargine (Lantus) 14 unit DAILY@08 SC Last administered on 06/21/17 08 :17; Admin Dose 14 UNIT; Start 06/19/17 at 08:00 Diagnostic Test (Pha) (Accu-Chek) 1 ea 02 XX Last administered on 06/20/17 02: 47; Admin Dose 1 EA; Start 06/19/17 at 02:00 ITALIA COLMENARES Jun 21, 2017 12:47 ITALIA COLMENARES Jun 21, 2017 12:47
--- NOTE | 2017-06-21 13:02 | PDOCDIS ---
Discharge Instructions CONDITION Patient Condition: Stable HOME CARE INSTRUCTIONS: Special Diet: carb controlled diet ACTIVITY: Activity Restrictions: Partial Weight Bearing (right foot ) FOLLOW UP/APPOINTMENTS Follow-up Plan Follow up/referral to PCP through [facility] within 1 week Referral to Podiatry outpatient for right food diabetic wound within 1 to 2 weeks ITALIA COLMENARES Jun 21, 2017 13:02
[2017-06-21] MEDS ORDERED: SSD1C20 TOP (13:04)
[2017-06-21] MEDS ORDERED: METF500T PO (13:04)
[2017-06-21] MEDS ORDERED: GLIP5TAB13 PO ×2 (13:04→13:09)
[2017-06-21 13:37] VITALS: BP 129/80; RESP 18
--- NOTE | 2017-06-21 15:20 | CONS ---
Date/Time of Note Date/Time of Note DATE: 06/21/17 TIME: 15:19 Consultation Date/Type/Reason Admit Date/Time Date of Consultation: Jun 21, 2017 Type of Consultation: ID Reason for Consultation Antibiotic management Past Medical History Medical History: no pertinent history Past Surgical History Past Surgical Hx: no surgical history Social History Alcohol Use: none Smoking Status: Never smoker Drug Use: none Exam/Review of Systems Vital Signs Vitals Vital Signs Date Time Temp Pulse Resp B/P Pulse Ox O2 Delivery O2 Flow Rate FiO2 06/21/17 13:37 98.2 86 18 129/80 96 06/21/17 02:30 Room Air Results Result Diagram: 06/18/17 0605 06/18/17 0605 Results 24 hrs Laboratory Tests Test 06/20/17 17:03 06/20/17 20:36 06/21/17 08:02 06/21/17 12:10 Bedside Glucose 115 162 144 164 Medications Medications Current Medications Ondansetron HCl (Zofran Inj) 4 mg Q6H PRN IV NAUSEA AND/OR VOMITING; Start 08/24 at 23:00 Acetaminophen (Tylenol Tab) 650 mg Q6H PRN PO PAIN LEVEL 1-3 OR FEVER; Start at 23:00 Morphine Sulfate (morphine) 2 mg Q4H PRN IV SEVERE PAIN LEVEL 7-10; Start 06/17 at 23:00 Docusate Sodium (Colace) 100 mg Q12H PRN PO CONSTIPATION; Start 06/17/17 at 23: 00 Bisacodyl (Dulcolax) 5 mg DAILY PRN PO CONSTIPATION; Start 06/17/17 at 23:00 Sodium Hypochlorite (Dakin'S (1/4 Strength)) 1 applic BID IRR Last administered on 06/21/17 08:07; Admin Dose 1 APPLIC; Start 06/18/17 at 09:00 Silver Sulfadiazine (Thermazene 1% 25 Gm) 1 applic BID TOP Last administered on 06/21/17 08:07; Admin Dose 1 APPLIC; Start 06/18/17 at 09:00 Diagnostic Test (Pha) (Accu-Chek) 1 ea 02 XX Last administered on 06/20/17 02: 47; Admin Dose 1 EA; Start 06/19/17 at 02:00 Levofloxacin (Levaquin) 500 mg DAILY PO Last administered on 06/21/17t 12:37; Admin Dose 500 MG; Start 06/21/17 at 12:30 Miscellaneous Information 1 ea NOTE XX ; Start 06/21/17 at 12:30 Glucose (Glutose) 15 gm Q15M PRN PO DECREASED GLUCOSE; Start 06/21/17 at 12:30 Glucose (Glutose) 22.5 gm Q15M PRN PO DECREASED GLUCOSE; Start 06/21/17 at 12: 30 Dextrose (D50w Syringe) 25 ml Q15M PRN IV DECREASED GLUCOSE; Start 06/21/17 at 12:30 Dextrose (D50w Syringe) 50 ml Q15M PRN IV DECREASED GLUCOSE; Start 06/21/17 at 12:30 Glucagon (Glucagen) 1 mg Q15M PRN IM DECREASED GLUCOSE; Start 06/21/17 at 12:30 Glucose (Glutose) 15 gm Q15M PRN BUCCAL DECREASED GLUCOSE; Start 06/21/17 at 12 :30 VIVIANA ENGLISH MD Jun 21, 2017 15:20
[2017-06-21] MEDS ORDERED: LEVO500T72 PO (15:29)
[2017-06-21] MEDS ORDERED: metFORMIN 500 MG TAB PO SCH (17:50)
--- NOTE | 2017-06-22 04:22 | CONS ---
DATE OF ADMISSION: 06/17/2017 DATE OF CONSULTATION: 06/21/2017 Infectious Disease Consultation REASON FOR CONSULTATION: Antibiotic management. Steve Aburto is a 57-year-old male with a number of problems, who was admitted with an infected right toe and with right great toe osteomyelitis. The patient had a previous injury to the toe. He was cutting his toes with tweezers and slipped and had a skin evulsion distally from the skin fold and matrix of the great toe. The toe was initially edematous and erythematous. The patient denied history of diabetes. Reports frequent ingrown toenails which he removes himself. The patient was felt to have osteomyelitis of the great toe. An x-ray shows osteomyelitis. He was started on vancomycin and Levaquin. A repeat MRI of the foot was ordered as well as podiatric and ID consultation. At the present time the patient is almost ready for discharge and antibiotic management was requested. On admission his white count was 8.3, H and H was 16 and 46, platelet count 275,000. BUN and creatinine 13/0.75, glucose of 259,000. Blood cultures are negative. X-ray of the foot shows dorsal skin and subcutaneous ulceration of the first distal phalanx, mild reactive edema at the distal phalanx without evidence of osteomyelitis at this time. Consider followup imaging in 5-7 days. The patient is currently on Levaquin. PAST MEDICAL HISTORY: Operations as outlined. FAMILY HISTORY: Noncontributory. SOCIAL HISTORY: He does not smoke, drink, or abuse drugs. ALLERGIES: NONE TO PENICILLIN, SULFA, OR FOODS. MEDICATION: Per chart. REVIEW OF SYSTEMS: As per HPI. PHYSICAL EXAMINATION: GENERAL: Patient is a well-developed, well-nourished, male, alert, responsive, in no acute distress. VITAL SIGNS: Stable. He is afebrile. SKIN: Without generalized rash. HEENT: Within normal limits. NECK: Supple. Lymph nodes not palpable. CHEST: Decreased breath sounds at the bases. HEART: Without murmur or gallop. ABDOMEN: Soft, nontender, without organomegaly or splenomegaly or masses. EXTREMITIES: Without cyanosis, clubbing, or edema. He has some wound on the medial aspect of his right great toe. RECTAL: Deferred. GENITAL: Deferred. NEUROLOGIC: No focal neurological abnormalities. IMPRESSION AND PLAN: At this point, patient can go home on Levaquin alone. There is no evidence of osteomyelitis. I will dictate my findings to Dr. Chance. Dictated By: Dillon Warren MD JD/[email or web address]/ilya /Document#: [id number]
[2017-06-22] MEDS ORDERED: glipiZIDE 5 MG TAB PO SCH ×2 (08:00)
== END 2017-06-21 18:40 | disposition home health service (06) | DRG 605 ==
LOC: FTE 15:33 → MS3 20:14 → MS2 06-18 13:35
PROVIDERS: ADMIT Internal Medicine; ATTEND Internal Medicine
PROC: 0HBRXZZ Excision of Toe Nail, External Approach (ICD-10-PCS; principal; 2017-06-17)
PROC: 0HDRXZZ Extraction of Toe Nail, External Approach (ICD-10-PCS; 2017-06-17)
DX: S91.201A Unspecified open wound of right great toe with damage to nail, initial encounter (principal); E11.621 Type 2 diabetes mellitus with foot ulcer; M86.9 Osteomyelitis, unspecified; E11.65 Type 2 diabetes mellitus with hyperglycemia; M79.674 Pain in right toe(s); I70.235 Atherosclerosis of native arteries of right leg with ulceration of other part of foot; L08.9 Local infection of the skin and subcutaneous tissue, unspecified; L60.0 Ingrowing nail; L03.031 Cellulitis of right toe; L97.519 Non-pressure chronic ulcer of other part of right foot with unspecified severity; E11.628 Type 2 diabetes mellitus with other skin complications; X78.8XXA Intentional self-harm by other sharp object, initial encounter; E11.69 Type 2 diabetes mellitus with other specified complication; R60.0 Localized edema; W45.0XXA Nail entering through skin, initial encounter; Y93.89 Activity, other specified
CPT/HCPCS: 73630; 73718; 80053; 80061; 80202; 82962; 83036; 83605; 83735; 84443; 85025; 87040; 93922; 96374; 96375; J0692; J1815; J1956; J3370; J7030; J7050

== ENCOUNTER → 2017-07-07 | Outpatient (CLI) | payer OTHER ==
[~2017-07-07] MED LIST: GLIP5TAB13 PO; LEVO500T72 PO; METF500T PO; SSD1C20 TOP
== END | disposition home or self-care (01) ==
LOC: DIB 11:00
PROVIDERS: ATTEND Emergency Medicine
DX: Z02.9 Encounter for administrative examinations, unspecified (principal)

== ENCOUNTER 2018-08-01 08:11 | Emergency (ER) | END 2018-08-01 12:49 | disposition home or self-care (01) ==